=== PATIENT | male | born 1935 | race Caucasian/White ===

== ENCOUNTER 2021-10-18 08:13 | Emergency (ER) | payer MEDICARE, OTHER ==
[~2021-10-18] VITALS: Ht 182.9 cm; Wt 104.3 kg
== END 2021-10-18 09:52 ==
LOC: ER 08:18
DX: T83.021A Displacement of indwelling urethral catheter, initial encounter (principal); R31.9 Hematuria, unspecified; I11.0 Hypertensive heart disease with heart failure; I50.9 Heart failure, unspecified; J45.909 Unspecified asthma, uncomplicated; E03.9 Hypothyroidism, unspecified; F32.A Depression, unspecified; Y84.6 Urinary catheterization as the cause of abnormal reaction of the patient, or of later complication, without mention of misadventure at the time of the procedure; Z79.899 Other long term (current) drug therapy; Z85.51 Personal history of malignant neoplasm of bladder
CPT/HCPCS: 99283

== ENCOUNTER 2021-10-21 14:09 | Inpatient (IN) | payer MEDICARE, OTHER ==
[~2021-10-21] VITALS: Ht 182.9 cm; Wt 104.3 kg
[2021-10-21] MEDS ORDERED: SODIUM CHLORIDE 0.9% 1000ML 1,000 ML IV STA (15:08)
[2021-10-21 15:46] LABS: BASOPHILS # (AUTO) 0.1 (0.0-0.1); BASOPHILS % 0.8 % (0.0-1.0); EOSINOPHILS # (AUTO) 1.6 (0.0-0.4); EOSINOPHILS % 18.4 % (0.0-6.0); HEMATOCRIT 29.9 % (38.2-49.6); LYMPHOCYTES # (AUTO) 1.2 (1.0-3.2); LYMPHOCYTES % 14.2 % (18.0-39.1); MEAN CORPUSCULAR HEMOGLOBIN 27.1 pg (28-32); MEAN CORPUSCULAR HGB CONC 30.1 g/dL (31-35); MEAN CORPUSCULAR VOLUME 90.1 fL (81-99); MONOCYTES # (AUTO) 0.7 (0.2-0.8); NEUTROPHILS % 58.2 % (38.7-80.0); PLATELET COUNT 281 x10e3/uL (140-360); RED BLOOD COUNT 3.32 x10e6/uL (4.3-5.7); RED CELL DISTRIBUTION WIDTH 13.5 % (11.7-14.4)
[2021-10-21 15:56] LABS: CLARITY,URINE TURBID (CLEAR); COLOR,URINE BROWN (YELLOW); KETONES,URINE 1+ (NEGATIVE); LEUKOCYTE ESTERASE ,URINE LARGE (NEGATIVE); NITRITE,URINE NEGATIVE (NEGATIVE); PROTEIN,URINE DIPSTICK >=300 (NEGATIVE); URINE UROBILINOGEN 1 mg/dL (0.2 - 1)
[2021-10-21 15:58] LABS: INR 0.87; PROTHROMBIN TIME 12.7 seconds (11.9-14.5)
[2021-10-21 15:59] LABS: PARTIAL THROMBOPLASTIN TIME 28.9 seconds (23.8-35.5)
[2021-10-21 16:06] LABS: ALANINE AMINOTRANSFERASE 7 IU/L (0-55); ALBUMIN 3.1 g/dL (3.5-5.0); ALKALINE PHOSPHATASE 81 IU/L (40-150); ANION GAP 12.8 mmol/L (8-16); BLOOD UREA NITROGEN 26 mg/dL (7-26); BUN/CREATININE RATIO 18 (6-25); CALCIUM 8.7 mg/dL (8.4-10.2); CARBON DIOXIDE 27 mmol/L (22-29); CHLORIDE 107 mmol/L (98-107); CREATINE KINASE 84 IU/L (30-200); CREATININE, SERUM 1.41 mg/dL (0.72-1.25); GLUCOSE 112 mg/dL (74-118); MAGNESIUM 1.8 MG/DL (1.3-2.1); POTASSIUM 3.8 mmol/L (3.5-5.1); SODIUM 143 mmol/L (136-145)
[2021-10-21 16:08] LABS: BACTERIA,URINE MODERATE /HPF; RBC,URINE 21-50 /HPF (0-5); WBC,URINE (MAN) >50 /HPF (0-5)
[2021-10-21] MEDS ORDERED: SODIUM CHLORIDE 0.9% 500ML 500 ML ONE (16:22)
[2021-10-21] MEDS: MEROPENEM 1 GM in SODIUM CHLORIDE 0.9% 100 ML IV SCH (16:56)
[2021-10-21] MEDS ORDERED: ONDANSETRON HCL INJ 2MG/ML 2ML 2 MG/ML VIAL IV PRN (17:00)
[2021-10-21] MEDS ORDERED: SODIUM CHLORIDE 0.9% 1000ML 1,000 ML IV ONE ×2 (17:00→20:00)
[2021-10-21 20:30] VITALS: BP 169/74
[2021-10-21 20:47] LABS: CREATINE KINASE MB 1.7 ng/mL (0-5.0)
[2021-10-21 22:40] VITALS: BP 169/74
[2021-10-22] VITALS (7 sets, daily range): BP systolic 104–126; BP diastolic 57–112
[2021-10-22] MEDS ORDERED: ONDANSETRON HCL4 MG PO (00:47)
[2021-10-22] MEDS ORDERED: MONTELUKAST SOD10 MG PO (00:47)
[2021-10-22] MEDS ORDERED: LOPRESSOR25 MG PO (00:47)
[2021-10-22] MEDS ORDERED: LORATADINE10 MG PO (00:47)
[2021-10-22] MEDS ORDERED: ALBUTEROL1.25 MG/3 NEB (00:48)
[2021-10-22] MEDS ORDERED: LEVOTHYROXINE125 MCG PO (00:48)
[2021-10-22] MEDS ORDERED: ATORVASTATIN CA10 MG PO (00:48)
[2021-10-22] MEDS ORDERED: QUETIAPINE FUMA25 MG PO (00:48)
[2021-10-22] MEDS ORDERED: AMLODIPINE BESYL5 MG PO (00:48)
[2021-10-22] MEDS ORDERED: HYDROXYZINE HCL25 MG PO (00:48)
[2021-10-22] MEDS ORDERED: BREZTRI AEROS10.7 GM INH (00:48)
[2021-10-22] MEDS ORDERED: FUROSEMIDE20 MG PO (00:48)
[2021-10-22] MEDS ORDERED: ACIDOPHILUS1 EAC1 PO (00:48)
[2021-10-22] MEDS ORDERED: PEPCID20 MG PO (00:48)
[2021-10-22] MEDS ORDERED: VITAMIN D3125 MCG PO (00:48)
[2021-10-22] MEDS ORDERED: PAROXETINE HCL20 MG PO (00:48)
[2021-10-22] MEDS ORDERED: ACETAMINOPHEN325 M1 PO (00:48)
[2021-10-22] MEDS: MEROPENEM 1 GM in SODIUM CHLORIDE 0.9% 100 ML IV SCH ×2 (05:15→18:11)
[2021-10-22 05:41] LABS: BASOPHILS # (AUTO) 0.1 (0.0-0.1); BASOPHILS % 1.1 % (0.0-1.0); EOSINOPHILS # (AUTO) 1.5 (0.0-0.4); EOSINOPHILS % 20.6 % (0.0-6.0); HEMOGLOBIN 8.3 g/dL (14.0-18.0); LYMPHOCYTES # (AUTO) 1.3 (1.0-3.2); LYMPHOCYTES % 17.3 % (18.0-39.1); MEAN CORPUSCULAR HGB CONC 29.6 g/dL (31-35); MEAN CORPUSCULAR VOLUME 91.2 fL (81-99); MONOCYTES # (AUTO) 0.6 (0.2-0.8); MONOCYTES % 8.9 % (4.4-11.3); NEUTROPHILS # (AUTO) 3.7 (2.1-6.9); NEUTROPHILS % 51.7 % (38.7-80.0); PLATELET COUNT 252 x10e3/uL (140-360); RED BLOOD COUNT 3.07 x10e6/uL (4.3-5.7); RED CELL DISTRIBUTION WIDTH 13.5 % (11.7-14.4)
[2021-10-22 06:15] LABS: ALBUMIN 2.7 g/dL (3.5-5.0); ALBUMIN/GLOBULIN RATIO 0.9 (0.8-2.0); ANION GAP 12.1 mmol/L (8-16); CREATININE, SERUM 1.31 mg/dL (0.72-1.25); POTASSIUM 4.1 mmol/L (3.5-5.1)
[2021-10-22 06:36] LABS: CREATINE KINASE 64 IU/L (30-200)
[2021-10-22 07:29] LABS: EOSINOPHILS % (MANUAL) 16 % (0-7); LYMPHOCYTES % (MANUAL) 19 % (19-48); MONOCYTES % (MANUAL) 8 % (3.4-9.0); NEUTROPHILS % (MANUAL) 56 % (40-74)
[2021-10-22 07:30] LABS: PLATELET ESTIMATE ADEQUATE; PLATELET MORPHOLOGY COMMENT NORMAL
[2021-10-22 07:32] LABS: RBC MORPHOLOGY COMMENT ABNORMAL
[2021-10-22 07:33] LABS: ELLIPTOCYTE, RBC SLIGHT; HYPOCHROMASIA SLIGHT
[2021-10-22 07:34] LABS: POIKILOCYTOSIS SLIG
[2021-10-22 07:35] LABS: ROULEAU MODERATE
[2021-10-22] MEDS ORDERED: NON-FORMULARY MEDICATION (Albuterol Sulfate 1 INH) NEB PRN (10:45)
[2021-10-22] MEDS ORDERED: ALBUTEROL SULF 0.083% NEB SOLN 3 ML NEB NEB PRN (11:00)
[2021-10-22 13:03] LABS: CREATINE KINASE MB 1.6 ng/mL (0-5.0)
[2021-10-22] MEDS ORDERED: ALBUTEROL/IPRATROPIUM 3 ML NEB NEB ONE (17:50)
[2021-10-23] VITALS (8 sets, daily range): BP systolic 96–132; BP diastolic 54–88
[2021-10-23] MEDS: MEROPENEM 1 GM in SODIUM CHLORIDE 0.9% 100 ML IV SCH (04:19)
[2021-10-23] MEDS: LEVOTHYROXINE SODIUM 125 MCG TAB PO SCH (05:52)
[2021-10-23] MEDS: MONTELUKAST SODIUM 10 MG TAB PO SCH (09:07)
[2021-10-23] MEDS ORDERED: ONDANSETRON HCL 4 MG ORAL DISINTEGRATING TAB PO PRN (10:45)
[2021-10-23] MEDS: ALBUTEROL/IPRATROPIUM 3 ML NEB NEB PRN ×2 (13:40→19:45)
[2021-10-23] MEDS ORDERED: METHYLPREDNISOLONE SOD SUCC 40 MG/ML VIAL 1ML IV ONE (17:00)
[2021-10-23 17:10] LABS: BASOPHILS % 0.6 % (0.0-1.0); EOSINOPHILS # (AUTO) 1.3 (0.0-0.4); EOSINOPHILS % 18.5 % (0.0-6.0); LYMPHOCYTES # (AUTO) 1.4 (1.0-3.2); LYMPHOCYTES % 19.6 % (18.0-39.1); MEAN CORPUSCULAR HEMOGLOBIN 27.2 pg (28-32); MONOCYTES # (AUTO) 0.6 (0.2-0.8); MONOCYTES % 7.9 % (4.4-11.3); NEUTROPHILS # (AUTO) 3.8 (2.1-6.9); NEUTROPHILS % 53.1 % (38.7-80.0); PLATELET COUNT 252 x10e3/uL (140-360); RED BLOOD COUNT 3.31 x10e6/uL (4.3-5.7); RED CELL DISTRIBUTION WIDTH 13.4 % (11.7-14.4)
[2021-10-23 17:28] LABS: MEAN CORPUSCULAR VOLUME 87.6 fL (81-99)
[2021-10-24] VITALS (8 sets, daily range): BP systolic 132–155; BP diastolic 49–66
[2021-10-24] MEDS: LEVOTHYROXINE SODIUM 125 MCG TAB PO SCH (05:03)
[2021-10-24 06:41] LABS: BASOPHILS % 0.2 % (0.0-1.0); EOSINOPHILS % 0.2 % (0.0-6.0); HEMATOCRIT 27.8 % (38.2-49.6); HEMOGLOBIN 9.1 g/dL (14.0-18.0); LYMPHOCYTES # (AUTO) 0.8 (1.0-3.2); LYMPHOCYTES % 12.7 % (18.0-39.1); MEAN CORPUSCULAR HEMOGLOBIN 27.5 pg (28-32); MEAN CORPUSCULAR HGB CONC 32.7 g/dL (31-35); MONOCYTES # (AUTO) 0.4 (0.2-0.8); MONOCYTES % 5.8 % (4.4-11.3); NEUTROPHILS % 80.6 % (38.7-80.0); PLATELET COUNT 267 x10e3/uL (140-360); RED BLOOD COUNT 3.31 x10e6/uL (4.3-5.7); RED CELL DISTRIBUTION WIDTH 13.2 % (11.7-14.4)
[2021-10-24 07:09] LABS: ANION GAP 13.4 mmol/L (8-16); CALCIUM 8.5 mg/dL (8.4-10.2); CREATININE, SERUM 1.33 mg/dL (0.72-1.25); POTASSIUM 4.4 mmol/L (3.5-5.1)
[2021-10-24] MEDS: MONTELUKAST SODIUM 10 MG TAB PO SCH (07:40)
[2021-10-25] VITALS (8 sets, daily range): BP systolic 144–167; BP diastolic 62–76
[2021-10-25] MEDS: LEVOTHYROXINE SODIUM 125 MCG TAB PO SCH (05:20)
[2021-10-25 07:03] LABS: BASOPHILS # (AUTO) 0.1 (0.0-0.1); BASOPHILS % 0.9 % (0.0-1.0); EOSINOPHILS # (AUTO) 1.1 (0.0-0.4); EOSINOPHILS % 14.3 % (0.0-6.0); HEMATOCRIT 29.7 % (38.2-49.6); HEMOGLOBIN 9.5 g/dL (14.0-18.0); LYMPHOCYTES # (AUTO) 1.4 (1.0-3.2); LYMPHOCYTES % 18.9 % (18.0-39.1); MEAN CORPUSCULAR HEMOGLOBIN 27.6 pg (28-32); MEAN CORPUSCULAR VOLUME 86.3 fL (81-99); MONOCYTES # (AUTO) 0.7 (0.2-0.8); MONOCYTES % 9.6 % (4.4-11.3); NEUTROPHILS # (AUTO) 4.1 (2.1-6.9); NEUTROPHILS % 55.6 % (38.7-80.0); PLATELET COUNT 255 x10e3/uL (140-360); RED BLOOD COUNT 3.44 x10e6/uL (4.3-5.7); RED CELL DISTRIBUTION WIDTH 13.3 % (11.7-14.4)
[2021-10-25 08:43] LABS: ANION GAP 11.7 mmol/L (8-16); CALCIUM 8.3 mg/dL (8.4-10.2); CREATININE, SERUM 1.27 mg/dL (0.72-1.25); POTASSIUM 3.7 mmol/L (3.5-5.1)
[2021-10-25] MEDS ORDERED: AMLODIPINE BESYLATE 5 MG TAB PO SCH (09:00)
[2021-10-25] MEDS: MONTELUKAST SODIUM 10 MG TAB PO SCH (09:33)
[2021-10-25] MEDS: ALBUTEROL/IPRATROPIUM 3 ML NEB NEB PRN (16:35)
[2021-10-25] MEDS: ALBUTEROL/IPRATROPIUM 3 ML NEB NEB SCH (20:40)
[2021-10-25] MEDS ORDERED: SODIUM CHLORIDE 0.9% 250ML 250 ML ONE (20:43)
[2021-10-26] VITALS (7 sets, daily range): BP systolic 131–160; BP diastolic 58–82
[2021-10-26] MEDS: ALBUTEROL/IPRATROPIUM 3 ML NEB NEB SCH ×4 (02:05→19:00)
[2021-10-26] MEDS: LEVOTHYROXINE SODIUM 125 MCG TAB PO SCH (05:18)
[2021-10-26 06:16] LABS: BASOPHILS # (AUTO) 0.1 (0.0-0.1); BASOPHILS % 0.7 % (0.0-1.0); EOSINOPHILS # (AUTO) 1.1 (0.0-0.4); EOSINOPHILS % 12.6 % (0.0-6.0); HEMATOCRIT 28.3 % (38.2-49.6); HEMOGLOBIN 9.1 g/dL (14.0-18.0); LYMPHOCYTES # (AUTO) 1.2 (1.0-3.2); LYMPHOCYTES % 13.6 % (18.0-39.1); MEAN CORPUSCULAR HEMOGLOBIN 27.2 pg (28-32); MEAN CORPUSCULAR HGB CONC 32.2 g/dL (31-35); MEAN CORPUSCULAR VOLUME 84.7 fL (81-99); MONOCYTES # (AUTO) 0.9 (0.2-0.8); MONOCYTES % 9.7 % (4.4-11.3); NEUTROPHILS # (AUTO) 5.5 (2.1-6.9); NEUTROPHILS % 62.9 % (38.7-80.0); PLATELET COUNT 252 x10e3/uL (140-360); RED BLOOD COUNT 3.34 x10e6/uL (4.3-5.7); RED CELL DISTRIBUTION WIDTH 13.2 % (11.7-14.4)
[2021-10-26 06:37] LABS: ANION GAP 13.5 mmol/L (8-16); CALCIUM 7.9 mg/dL (8.4-10.2); CREATININE, SERUM 1.19 mg/dL (0.72-1.25); POTASSIUM 3.5 mmol/L (3.5-5.1)
[2021-10-26] MEDS: PAROXETINE HCL 20 MG TAB PO SCH (10:45)
[2021-10-26] MEDS: ATORVASTATIN 10 MG TAB PO SCH (10:45)
[2021-10-26] MEDS: METOPROLOL TARTRATE 25 MG TAB PO SCH ×2 (10:45→18:26)
[2021-10-26] MEDS: AMLODIPINE BESYLATE 5 MG TAB PO SCH (10:45)
[2021-10-26] MEDS: LORATADINE 10 MG TAB PO SCH (10:45)
[2021-10-26] MEDS: MONTELUKAST SODIUM 10 MG TAB PO SCH (10:46)
[2021-10-27] VITALS (7 sets, daily range): BP systolic 118–163; BP diastolic 53–75
[2021-10-27] MEDS: ALBUTEROL/IPRATROPIUM 3 ML NEB NEB SCH ×4 (00:35→19:52)
[2021-10-27] MEDS: LEVOTHYROXINE SODIUM 125 MCG TAB PO SCH (05:28)
[2021-10-27] MEDS: METOPROLOL TARTRATE 25 MG TAB PO SCH ×2 (09:21→17:00)
[2021-10-27] MEDS: AMLODIPINE BESYLATE 5 MG TAB PO SCH (09:21)
[2021-10-27] MEDS: ATORVASTATIN 10 MG TAB PO SCH (09:21)
[2021-10-27] MEDS: MONTELUKAST SODIUM 10 MG TAB PO SCH (09:22)
[2021-10-27] MEDS: PAROXETINE HCL 20 MG TAB PO SCH (09:22)
[2021-10-27] MEDS: LORATADINE 10 MG TAB PO SCH (09:22)
[2021-10-27] MEDS ORDERED: SODIUM CHLORIDE 0.9% 250ML 250 ML ONE ×2 (09:40→09:43)
[2021-10-28] VITALS (8 sets, daily range): BP systolic 130–144; BP diastolic 48–82
[2021-10-28] MEDS: ALBUTEROL/IPRATROPIUM 3 ML NEB NEB SCH ×4 (00:40→20:35)
[2021-10-28] MEDS: LEVOTHYROXINE SODIUM 125 MCG TAB PO SCH (05:20)
[2021-10-28 06:55] LABS: BASOPHILS # (AUTO) 0.1 (0.0-0.1); BASOPHILS % 0.8 % (0.0-1.0); EOSINOPHILS # (AUTO) 1.3 (0.0-0.4); EOSINOPHILS % 16.6 % (0.0-6.0); HEMATOCRIT 27.5 % (38.2-49.6); HEMOGLOBIN 8.8 g/dL (14.0-18.0); LYMPHOCYTES # (AUTO) 1.4 (1.0-3.2); LYMPHOCYTES % 18.3 % (18.0-39.1); MEAN CORPUSCULAR HEMOGLOBIN 27.2 pg (28-32); MEAN CORPUSCULAR VOLUME 85.1 fL (81-99); MONOCYTES # (AUTO) 0.6 (0.2-0.8); MONOCYTES % 7.7 % (4.4-11.3); NEUTROPHILS # (AUTO) 4.4 (2.1-6.9); NEUTROPHILS % 56.2 % (38.7-80.0); PLATELET COUNT 247 x10e3/uL (140-360); RED BLOOD COUNT 3.23 x10e6/uL (4.3-5.7); RED CELL DISTRIBUTION WIDTH 13.7 % (11.7-14.4)
[2021-10-28 07:20] LABS: ANION GAP 11.8 mmol/L (8-16); CALCIUM 8.4 mg/dL (8.4-10.2); CREATININE, SERUM 1.28 mg/dL (0.72-1.25); POTASSIUM 3.8 mmol/L (3.5-5.1)
[2021-10-28] MEDS: ATORVASTATIN 10 MG TAB PO SCH (08:48)
[2021-10-28] MEDS: LORATADINE 10 MG TAB PO SCH (08:49)
[2021-10-28] MEDS: PAROXETINE HCL 20 MG TAB PO SCH (08:49)
[2021-10-28] MEDS: METOPROLOL TARTRATE 25 MG TAB PO SCH ×2 (08:50→16:09)
[2021-10-28] MEDS: AMLODIPINE BESYLATE 5 MG TAB PO SCH (08:51)
[2021-10-28] MEDS: MONTELUKAST SODIUM 10 MG TAB PO SCH (08:52)
[2021-10-29] VITALS (8 sets, daily range): BP systolic 98–139; BP diastolic 50–83
[2021-10-29] MEDS: ALBUTEROL/IPRATROPIUM 3 ML NEB NEB SCH ×4 (02:30→20:10)
[2021-10-29] MEDS: LEVOTHYROXINE SODIUM 125 MCG TAB PO SCH (06:00)
[2021-10-29] MEDS: PAROXETINE HCL 20 MG TAB PO SCH (08:50)
[2021-10-29] MEDS: AMLODIPINE BESYLATE 5 MG TAB PO SCH (08:50)
[2021-10-29] MEDS: LORATADINE 10 MG TAB PO SCH (08:50)
[2021-10-29] MEDS: MONTELUKAST SODIUM 10 MG TAB PO SCH (08:50)
[2021-10-29] MEDS: ATORVASTATIN 10 MG TAB PO SCH (08:50)
[2021-10-29] MEDS: METOPROLOL TARTRATE 25 MG TAB PO SCH ×2 (08:51→16:20)
[2021-10-29] MEDS: TRIAMCINOLONE ACET 0.1% CREAM 15 GM TUBE TOP SCH (21:16)
[2021-10-30] VITALS (7 sets, daily range): BP systolic 123–139; BP diastolic 42–83
[2021-10-30] MEDS: ALBUTEROL/IPRATROPIUM 3 ML NEB NEB SCH ×4 (02:00→19:20)
[2021-10-30] MEDS: LEVOTHYROXINE SODIUM 125 MCG TAB PO SCH (06:00)
[2021-10-30] MEDS: LORATADINE 10 MG TAB PO SCH (09:37)
[2021-10-30] MEDS: ATORVASTATIN 10 MG TAB PO SCH (09:37)
[2021-10-30] MEDS: METOPROLOL TARTRATE 25 MG TAB PO SCH ×2 (09:38→17:10)
[2021-10-30] MEDS: TRIAMCINOLONE ACET 0.1% CREAM 15 GM TUBE TOP SCH ×2 (09:38→21:00)
[2021-10-30] MEDS: AMLODIPINE BESYLATE 5 MG TAB PO SCH (09:38)
[2021-10-30] MEDS: MONTELUKAST SODIUM 10 MG TAB PO SCH (09:38)
[2021-10-30] MEDS: PAROXETINE HCL 20 MG TAB PO SCH (09:38)
[2021-10-31] VITALS (10 sets, daily range): BP systolic 128–144; BP diastolic 47–79
[2021-10-31] MEDS: ALBUTEROL/IPRATROPIUM 3 ML NEB NEB SCH ×4 (00:15→19:40)
[2021-10-31] MEDS: LEVOTHYROXINE SODIUM 125 MCG TAB PO SCH (05:35)
[2021-10-31] MEDS: LORATADINE 10 MG TAB PO SCH (08:33)
[2021-10-31] MEDS: ATORVASTATIN 10 MG TAB PO SCH (08:33)
[2021-10-31] MEDS: PAROXETINE HCL 20 MG TAB PO SCH (08:34)
[2021-10-31] MEDS: TRIAMCINOLONE ACET 0.1% CREAM 15 GM TUBE TOP SCH ×2 (08:34→21:00)
[2021-10-31] MEDS: MONTELUKAST SODIUM 10 MG TAB PO SCH (08:34)
[2021-10-31] MEDS: AMLODIPINE BESYLATE 5 MG TAB PO SCH (08:34)
[2021-10-31] MEDS: METOPROLOL TARTRATE 25 MG TAB PO SCH ×2 (08:34→17:00)
[2021-10-31 10:25] LABS: BASOPHILS # (AUTO) 0.1 (0.0-0.1); BASOPHILS % 0.9 % (0.0-1.0); EOSINOPHILS # (AUTO) 1.1 (0.0-0.4); EOSINOPHILS % 13.5 % (0.0-6.0); HEMATOCRIT 28.7 % (38.2-49.6); HEMOGLOBIN 8.9 g/dL (14.0-18.0); LYMPHOCYTES # (AUTO) 1.2 (1.0-3.2); MEAN CORPUSCULAR HEMOGLOBIN 27.1 pg (28-32); MEAN CORPUSCULAR VOLUME 87.5 fL (81-99); MONOCYTES # (AUTO) 0.6 (0.2-0.8); MONOCYTES % 7.4 % (4.4-11.3); NEUTROPHILS # (AUTO) 5.3 (2.1-6.9); PLATELET COUNT 248 x10e3/uL (140-360); RED BLOOD COUNT 3.28 x10e6/uL (4.3-5.7); RED CELL DISTRIBUTION WIDTH 13.8 % (11.7-14.4)
[2021-11-01] MEDS: ALBUTEROL/IPRATROPIUM 3 ML NEB NEB SCH ×4 (00:05→19:18)
[2021-11-01 04:14] VITALS: BP 147/64
[2021-11-01] MEDS: LEVOTHYROXINE SODIUM 125 MCG TAB PO SCH (06:07)
[2021-11-01 07:56] VITALS: BP 113/62
[2021-11-01 08:17] VITALS: BP_SYST 113; BP_SYST 170; BP_DIAS 62; BP_DIAS 90
[2021-11-01] MEDS: MONTELUKAST SODIUM 10 MG TAB PO SCH (09:20)
[2021-11-01] MEDS: AMLODIPINE BESYLATE 5 MG TAB PO SCH (09:20)
[2021-11-01] MEDS: PAROXETINE HCL 20 MG TAB PO SCH (09:20)
[2021-11-01] MEDS: LORATADINE 10 MG TAB PO SCH (09:20)
[2021-11-01] MEDS: METOPROLOL TARTRATE 25 MG TAB PO SCH ×2 (09:22→17:03)
[2021-11-01] MEDS: ATORVASTATIN 10 MG TAB PO SCH (09:22)
[2021-11-01] MEDS: TRIAMCINOLONE ACET 0.1% CREAM 15 GM TUBE TOP SCH ×2 (09:23→23:09)
[2021-11-01 11:36] VITALS: BP 113/60
[2021-11-01 15:50] VITALS: BP 118/51
[2021-11-01 20:00] VITALS: BP 95/70
[2021-11-02] VITALS: BP 130/57
[2021-11-02] MEDS: ALBUTEROL/IPRATROPIUM 3 ML NEB NEB SCH ×2 (00:15→07:01)
[2021-11-02 04:00] VITALS: BP 97/72
[2021-11-02] MEDS: LEVOTHYROXINE SODIUM 125 MCG TAB PO SCH (05:24)
[2021-11-02 06:34] LABS: BASOPHILS # (AUTO) 0.1 (0.0-0.1); EOSINOPHILS # (AUTO) 1.1 (0.0-0.4); EOSINOPHILS % 14.6 % (0.0-6.0); HEMATOCRIT 28.8 % (38.2-49.6); HEMOGLOBIN 9.3 g/dL (14.0-18.0); LYMPHOCYTES # (AUTO) 1.3 (1.0-3.2); MEAN CORPUSCULAR HEMOGLOBIN 27.4 pg (28-32); MEAN CORPUSCULAR HGB CONC 32.3 g/dL (31-35); MONOCYTES # (AUTO) 0.7 (0.2-0.8); MONOCYTES % 9.3 % (4.4-11.3); NEUTROPHILS # (AUTO) 4.1 (2.1-6.9); NEUTROPHILS % 56.7 % (38.7-80.0); PLATELET COUNT 258 x10e3/uL (140-360); RED BLOOD COUNT 3.39 x10e6/uL (4.3-5.7); RED CELL DISTRIBUTION WIDTH 13.7 % (11.7-14.4)
[2021-11-02 07:06] LABS: CALCIUM 8.2 mg/dL (8.4-10.2); CREATININE, SERUM 1.44 mg/dL (0.72-1.25)
[2021-11-02 07:52] VITALS: BP 134/61
[2021-11-02 08:04] VITALS: BP 134/61
[2021-11-02] MEDS: ATORVASTATIN 10 MG TAB PO SCH (08:26)
[2021-11-02] MEDS: METOPROLOL TARTRATE 25 MG TAB PO SCH (08:27)
[2021-11-02] MEDS: LORATADINE 10 MG TAB PO SCH (08:27)
[2021-11-02] MEDS: TRIAMCINOLONE ACET 0.1% CREAM 15 GM TUBE TOP SCH (08:27)
[2021-11-02] MEDS: MONTELUKAST SODIUM 10 MG TAB PO SCH (08:27)
[2021-11-02] MEDS: AMLODIPINE BESYLATE 5 MG TAB PO SCH (08:27)
[2021-11-02] MEDS: PAROXETINE HCL 20 MG TAB PO SCH (08:27)
== END 2021-11-02 09:55 | disposition critical access hospital, planned readmission (94) | DRG 698 ==
LOC: ER 14:56 → ERHOLD 16:51 → MED/SURG2 19:47 → MED/SURG3 10-24 05:10
PROVIDERS: ADMIT Internal Medicine; ATTEND Internal Medicine
DX: T83.091A Other mechanical complication of indwelling urethral catheter, initial encounter (principal); G93.41 Metabolic encephalopathy; N17.9 Acute kidney failure, unspecified; N39.0 Urinary tract infection, site not specified; N13.8 Other obstructive and reflux uropathy; I13.0 Hypertensive heart and chronic kidney disease with heart failure and stage 1 through stage 4 chronic kidney disease, or unspecified chronic kidney disease; I50.32 Chronic diastolic (congestive) heart failure; F03.90 Unspecified dementia, unspecified severity, without behavioral disturbance, psychotic disturbance, mood disturbance, and anxiety; J45.909 Unspecified asthma, uncomplicated; E03.9 Hypothyroidism, unspecified; F32.A Depression, unspecified; Z88.1 Allergy status to other antibiotic agents; Z91.040 Latex allergy status; N40.1 Benign prostatic hyperplasia with lower urinary tract symptoms; J44.9 Chronic obstructive pulmonary disease, unspecified; E66.9 Obesity, unspecified; Z68.31 Body mass index [BMI] 31.0-31.9, adult; C67.9 Malignant neoplasm of bladder, unspecified; I35.0 Nonrheumatic aortic (valve) stenosis; E78.5 Hyperlipidemia, unspecified; N18.30 Chronic kidney disease, stage 3 unspecified; D63.8 Anemia in other chronic diseases classified elsewhere; D50.0 Iron deficiency anemia secondary to blood loss (chronic); Z20.822 Contact with and (suspected) exposure to COVID-19
CPT/HCPCS: 36415; 71045; 72194; 80048; 80053; 81001; 82550; 82553; 83605; 83735; 83880; 84484; 85025; 85610; 85730; 86850; 86900; 87040; 87086; 93005; 93306; 94640; 94664; 94799; 96361; 99251; 99284; J0696; J2185; J2920; J7030; J7040; J7050

== ENCOUNTER 2021-11-21 13:31 | Inpatient (IN) | payer MEDICARE, OTHER ==
[~2021-11-21] VITALS: Ht 182.9 cm; Wt 104.3 kg
[~2021-11-21 13:31] MED LIST: ACETAMINOPHEN325 M1 PO; ACIDOPHILUS1 EAC1 PO; ALBUTEROL1.25 MG/3 NEB; AMLODIPINE BESYL5 MG PO; ATORVASTATIN CA10 MG PO; BREZTRI AEROS10.7 GM INH; FUROSEMIDE20 MG PO; HYDROXYZINE HCL25 MG PO; LEVOTHYROXINE125 MCG PO; LOPRESSOR25 MG PO; LORATADINE10 MG PO; MONTELUKAST SOD10 MG PO; ONDANSETRON HCL4 MG PO; PAROXETINE HCL20 MG PO; PEPCID20 MG PO; QUETIAPINE FUMA25 MG PO; VITAMIN D3125 MCG PO
[2021-11-21 17:31] VITALS: BP 110/64
[2021-11-21 18:00] VITALS: BP 110/64
[2021-11-21] MEDS ORDERED: IPRATROPIU0.2 MG/1 M NEB (18:26)
[2021-11-21] MEDS ORDERED: SEROQUEL25 MG PO (18:26)
[2021-11-21] MEDS ORDERED: SYNTHROID125 MCG PO (18:26)
[2021-11-21] MEDS ORDERED: CLOTRIMAZOLE-BE15 GM TOP (18:26)
[2021-11-21] MEDS ORDERED: BISACODYL5 MG PO (18:26)
[2021-11-21] MEDS ORDERED: MONTELUKAST SOD10 MG PO (18:26)
[2021-11-21] MEDS ORDERED: IPRATROPIU0.2 MG/1 M INH (18:26)
[2021-11-21] MEDS ORDERED: DOCUSATE SODIU100 MG PO (18:26)
[2021-11-21] MEDS ORDERED: DULCOLAX10 MG PR (18:26)
[2021-11-21] MEDS ORDERED: HEPARIN 5,5000 UNIT1 SQ (18:26)
[2021-11-21] MEDS ORDERED: COMPAZINE25 MG IVP (18:26)
[2021-11-21] MEDS ORDERED: HYDRALAZIN20 MG/1 ML INJ (18:26)
[2021-11-21] MEDS ORDERED: SENOKOT-S TABL1 EACH PO (18:26)
[2021-11-21 18:30] VITALS: BP 110/64
[2021-11-21] MEDS ORDERED: HYDRALAZINE HCL 20 MG/ML VIAL INJ PRN (18:30)
[2021-11-21] MEDS ORDERED: BISACODYL 5 MG TAB EC PO PRN (18:30)
[2021-11-21] MEDS ORDERED: IPRATROPIUM BROMIDE 0.02% 2.5 ML NEB INH PRN (18:30)
[2021-11-21] MEDS ORDERED: PROCHLORPERAZINE 10 MG IVP PRN (18:30)
[2021-11-21] MEDS ORDERED: BISACODYL 10 MG SUPP PR PRN (18:30)
[2021-11-21] MEDS: IPRATROPIUM BROMIDE 0.02% 2.5 ML NEB NEB SCH ×2 (19:15→23:00)
[2021-11-21 20:00] VITALS: BP 144/78
[2021-11-21] MEDS: QUETIAPINE FUMARATE 25 MG TAB PO SCH (20:30)
[2021-11-21] MEDS: MONTELUKAST SODIUM 10 MG TAB PO SCH (20:30)
[2021-11-21] MEDS: ATORVASTATIN 10 MG TAB PO SCH (20:30)
[2021-11-21] MEDS ORDERED: ACETAMINOPHEN 325 MG TAB PO PRN (21:00)
[2021-11-21 21:30] VITALS: BP 144/78
[2021-11-21 22:00] VITALS: BP 144/78
[2021-11-22] VITALS (17 sets, daily range): BP systolic 112–165; BP diastolic 71–99
[2021-11-22] MEDS: IPRATROPIUM BROMIDE 0.02% 2.5 ML NEB NEB SCH ×6 (03:00→23:25)
[2021-11-22 05:30] LABS: BASOPHILS % 0.4 % (0.0-1.0); EOSINOPHILS # (AUTO) 1.3 (0.0-0.4); EOSINOPHILS % 16.8 % (0.0-6.0); HEMATOCRIT 23.9 % (38.2-49.6); HEMOGLOBIN 7.8 g/dL (14.0-18.0); LYMPHOCYTES % 12.8 % (18.0-39.1); MEAN CORPUSCULAR HEMOGLOBIN 27.6 pg (28-32); MEAN CORPUSCULAR HGB CONC 32.6 g/dL (31-35); MEAN CORPUSCULAR VOLUME 84.5 fL (81-99); MONOCYTES # (AUTO) 0.7 (0.2-0.8); MONOCYTES % 8.9 % (4.4-11.3); NEUTROPHILS # (AUTO) 4.8 (2.1-6.9); NEUTROPHILS % 60.6 % (38.7-80.0); PLATELET COUNT 153 x10e3/uL (140-360); RED BLOOD COUNT 2.83 x10e6/uL (4.3-5.7); RED CELL DISTRIBUTION WIDTH 13.6 % (11.7-14.4)
[2021-11-22] MEDS: LEVOTHYROXINE SODIUM 125 MCG TAB PO SCH (05:49)
[2021-11-22 05:52] LABS: ANION GAP 11.6 mmol/L (8-16); CALCIUM 8.4 mg/dL (8.4-10.2); CREATININE, SERUM 1.19 mg/dL (0.72-1.25); POTASSIUM 3.6 mmol/L (3.5-5.1)
[2021-11-22] MEDS: NON-FORMULARY MEDICATION (Budesonide/Glycopyr/Formoterol (Breztri Aerosphere Inhaler) 2 IN INH SCH ×2 (09:00→19:00)
[2021-11-22] MEDS ORDERED: ACETAMINOPHEN 325 MG TAB PO SCH (09:00)
[2021-11-22] MEDS: BETAMETHASONE/CLOTRIMAZOLE CR 15 GM TUBE TOP SCH ×2 (10:39→17:26)
[2021-11-22] MEDS: DOCUSATE SODIUM 100 MG CAP PO SCH ×2 (10:39→17:26)
[2021-11-22] MEDS: SENNA-S TABLET PO SCH ×2 (10:39→17:26)
[2021-11-22] MEDS: FUROSEMIDE INJ 10 MG/ML 4 ML VIAL IV SCH ×2 (10:41→22:22)
[2021-11-22] MEDS: QUETIAPINE FUMARATE 25 MG TAB PO SCH (22:22)
[2021-11-22] MEDS: ATORVASTATIN 10 MG TAB PO SCH (22:22)
[2021-11-22] MEDS: MONTELUKAST SODIUM 10 MG TAB PO SCH (22:22)
[2021-11-23] VITALS (11 sets, daily range): BP systolic 123–171; BP diastolic 54–99
[2021-11-23] MEDS: IPRATROPIUM BROMIDE 0.02% 2.5 ML NEB NEB SCH ×6 (02:50→22:50)
[2021-11-23 05:39] LABS: BASOPHILS % 0.3 % (0.0-1.0); EOSINOPHILS # (AUTO) 1.2 (0.0-0.4); EOSINOPHILS % 16.3 % (0.0-6.0); HEMATOCRIT 24.4 % (38.2-49.6); HEMOGLOBIN 7.7 g/dL (14.0-18.0); LYMPHOCYTES # (AUTO) 1.1 (1.0-3.2); LYMPHOCYTES % 14.6 % (18.0-39.1); MEAN CORPUSCULAR HEMOGLOBIN 27.7 pg (28-32); MEAN CORPUSCULAR HGB CONC 31.6 g/dL (31-35); MEAN CORPUSCULAR VOLUME 87.8 fL (81-99); MONOCYTES # (AUTO) 0.7 (0.2-0.8); MONOCYTES % 9.8 % (4.4-11.3); NEUTROPHILS # (AUTO) 4.3 (2.1-6.9); NEUTROPHILS % 58.6 % (38.7-80.0); PLATELET COUNT 203 x10e3/uL (140-360); RED BLOOD COUNT 2.78 x10e6/uL (4.3-5.7); RED CELL DISTRIBUTION WIDTH 13.6 % (11.7-14.4)
[2021-11-23 06:00] LABS: ALBUMIN 2.5 g/dL (3.5-5.0); ALBUMIN/GLOBULIN RATIO 0.9 (0.8-2.0); ANION GAP 13.4 mmol/L (8-16); CALCIUM 8.5 mg/dL (8.4-10.2); CREATININE, SERUM 1.32 mg/dL (0.72-1.25); POTASSIUM 3.4 mmol/L (3.5-5.1)
[2021-11-23] MEDS: LEVOTHYROXINE SODIUM 125 MCG TAB PO SCH (06:41)
[2021-11-23] MEDS: NON-FORMULARY MEDICATION (Budesonide/Glycopyr/Formoterol (Breztri Aerosphere Inhaler) 2 IN INH SCH ×2 (07:00→19:00)
[2021-11-23] MEDS: FUROSEMIDE INJ 10 MG/ML 4 ML VIAL IV SCH (08:33)
[2021-11-23] MEDS: SENNA-S TABLET PO SCH ×2 (08:33→17:01)
[2021-11-23] MEDS: DOCUSATE SODIUM 100 MG CAP PO SCH ×2 (08:34→17:01)
[2021-11-23] MEDS: BETAMETHASONE/CLOTRIMAZOLE CR 15 GM TUBE TOP SCH ×2 (08:34→17:01)
[2021-11-23] MEDS ORDERED: METHYLPREDNISOLONE SOD SUCC 40 MG/ML VIAL 1ML IV ONE (12:00)
[2021-11-23] MEDS: FUROSEMIDE 20 MG TAB PO SCH (13:34)
[2021-11-23] MEDS: HYDROCORTISONE 1% CREAM 30 GM TUBE TOP SCH (17:01)
[2021-11-23] MEDS: QUETIAPINE FUMARATE 25 MG TAB PO SCH (21:00)
[2021-11-23] MEDS: ATORVASTATIN 10 MG TAB PO SCH (21:00)
[2021-11-23] MEDS: MONTELUKAST SODIUM 10 MG TAB PO SCH (21:00)
[2021-11-24] VITALS (7 sets, daily range): BP systolic 141–159; BP diastolic 48–84
[2021-11-24] MEDS: IPRATROPIUM BROMIDE 0.02% 2.5 ML NEB NEB SCH ×6 (03:00→23:00)
[2021-11-24] MEDS: LEVOTHYROXINE SODIUM 125 MCG TAB PO SCH (05:51)
[2021-11-24] MEDS: NON-FORMULARY MEDICATION (Budesonide/Glycopyr/Formoterol (Breztri Aerosphere Inhaler) 2 IN INH SCH ×2 (07:00→19:00)
[2021-11-24] MEDS ORDERED: COREG6.25 MG PO (09:10)
[2021-11-24] MEDS ORDERED: LASIX40 MG PO (09:10)
[2021-11-24] MEDS: FUROSEMIDE 20 MG TAB PO SCH (09:24)
[2021-11-24] MEDS: DOCUSATE SODIUM 100 MG CAP PO SCH ×2 (09:24→17:40)
[2021-11-24] MEDS: SENNA-S TABLET PO SCH ×2 (09:24→17:40)
[2021-11-24] MEDS: BETAMETHASONE/CLOTRIMAZOLE CR 15 GM TUBE TOP SCH ×2 (09:24→17:40)
[2021-11-24] MEDS: HYDROCORTISONE 1% CREAM 30 GM TUBE TOP SCH ×2 (09:24→17:40)
[2021-11-24] MEDS: LORATADINE 10 MG TAB PO SCH (09:24)
[2021-11-24] MEDS: ATORVASTATIN 10 MG TAB PO SCH (21:00)
[2021-11-24] MEDS: QUETIAPINE FUMARATE 25 MG TAB PO SCH (21:00)
[2021-11-24] MEDS: MONTELUKAST SODIUM 10 MG TAB PO SCH (21:00)
[2021-11-25] VITALS (8 sets, daily range): BP systolic 104–168; BP diastolic 21–93
[2021-11-25] MEDS: IPRATROPIUM BROMIDE 0.02% 2.5 ML NEB NEB SCH ×6 (00:20→20:10)
[2021-11-25 05:56] LABS: BASOPHILS # (AUTO) 0.1 (0.0-0.1); BASOPHILS % 0.8 % (0.0-1.0); EOSINOPHILS # (AUTO) 1.2 (0.0-0.4); EOSINOPHILS % 18.7 % (0.0-6.0); HEMATOCRIT 24.3 % (38.2-49.6); LYMPHOCYTES # (AUTO) 1.3 (1.0-3.2); LYMPHOCYTES % 18.8 % (18.0-39.1); MEAN CORPUSCULAR HEMOGLOBIN 27.9 pg (28-32); MEAN CORPUSCULAR HGB CONC 32.9 g/dL (31-35); MEAN CORPUSCULAR VOLUME 84.7 fL (81-99); MONOCYTES # (AUTO) 0.6 (0.2-0.8); MONOCYTES % 8.4 % (4.4-11.3); NEUTROPHILS # (AUTO) 3.5 (2.1-6.9); NEUTROPHILS % 52.7 % (38.7-80.0); PLATELET COUNT 332 x10e3/uL (140-360); RED BLOOD COUNT 2.87 x10e6/uL (4.3-5.7); RED CELL DISTRIBUTION WIDTH 13.7 % (11.7-14.4)
[2021-11-25] MEDS: LEVOTHYROXINE SODIUM 125 MCG TAB PO SCH (06:09)
[2021-11-25 08:02] LABS: ANION GAP 16.5 mmol/L (8-16); CALCIUM 8.4 mg/dL (8.4-10.2); CREATININE, SERUM 1.4 mg/dL (0.72-1.25); POTASSIUM 3.5 mmol/L (3.5-5.1)
[2021-11-25] MEDS: LORATADINE 10 MG TAB PO SCH (09:25)
[2021-11-25] MEDS: SENNA-S TABLET PO SCH ×2 (09:25→17:57)
[2021-11-25] MEDS: DOCUSATE SODIUM 100 MG CAP PO SCH ×2 (09:25→17:57)
[2021-11-25] MEDS: FUROSEMIDE 20 MG TAB PO SCH (09:25)
[2021-11-25] MEDS: BETAMETHASONE/CLOTRIMAZOLE CR 15 GM TUBE TOP SCH ×2 (09:27→18:04)
[2021-11-25] MEDS: HYDROCORTISONE 1% CREAM 30 GM TUBE TOP SCH ×2 (09:30→18:04)
[2021-11-25] MEDS: METOPROLOL TARTRATE 25 MG TAB PO SCH (21:59)
[2021-11-25] MEDS: ATORVASTATIN 10 MG TAB PO SCH (21:59)
[2021-11-25] MEDS: QUETIAPINE FUMARATE 25 MG TAB PO SCH (22:00)
[2021-11-25] MEDS: MONTELUKAST SODIUM 10 MG TAB PO SCH (22:00)
[2021-11-26] VITALS: BP 168/72
[2021-11-26 04:00] VITALS: BP 150/67
[2021-11-26] MEDS: IPRATROPIUM BROMIDE 0.02% 2.5 ML NEB NEB SCH ×5 (04:00→19:10)
[2021-11-26] MEDS: LEVOTHYROXINE SODIUM 125 MCG TAB PO SCH (06:33)
[2021-11-26] MEDS: NON-FORMULARY MEDICATION (Budesonide/Glycopyr/Formoterol (Breztri Aerosphere Inhaler) 2 IN INH SCH (07:00)
[2021-11-26 09:04] VITALS: BP 145/61
[2021-11-26] MEDS: DOCUSATE SODIUM 100 MG CAP PO SCH ×2 (09:06→17:05)
[2021-11-26] MEDS: SENNA-S TABLET PO SCH ×2 (09:06→17:05)
[2021-11-26] MEDS: FUROSEMIDE 20 MG TAB PO SCH (09:07)
[2021-11-26] MEDS: BETAMETHASONE/CLOTRIMAZOLE CR 15 GM TUBE TOP SCH ×2 (09:07→17:05)
[2021-11-26] MEDS: METOPROLOL TARTRATE 25 MG TAB PO SCH (09:07)
[2021-11-26] MEDS: HYDROCORTISONE 1% CREAM 30 GM TUBE TOP SCH ×2 (09:07→17:05)
[2021-11-26] MEDS: LORATADINE 10 MG TAB PO SCH (09:07)
[2021-11-26 09:56] VITALS: BP 141/65
[2021-11-26 12:47] VITALS: BP 123/67
[2021-11-26] MEDS ORDERED: LOPRESSOR25 MG PO (15:52)
[2021-11-26] MEDS ORDERED: FUROSEMIDE20 MG PO (15:52)
[2021-11-26 16:56] VITALS: BP 149/68
== END 2021-11-26 19:46 | DRG 291 ==
LOC: UNDOADMIN 13:42 → MED/SURG3 13:42
PROVIDERS: ADMIT Internal Medicine; ATTEND Internal Medicine
DX: I13.0 Hypertensive heart and chronic kidney disease with heart failure and stage 1 through stage 4 chronic kidney disease, or unspecified chronic kidney disease (principal); I50.33 Acute on chronic diastolic (congestive) heart failure; N17.9 Acute kidney failure, unspecified; N39.0 Urinary tract infection, site not specified; N20.1 Calculus of ureter; C67.9 Malignant neoplasm of bladder, unspecified; I35.0 Nonrheumatic aortic (valve) stenosis; J44.9 Chronic obstructive pulmonary disease, unspecified; E03.9 Hypothyroidism, unspecified; N18.30 Chronic kidney disease, stage 3 unspecified; F03.90 Unspecified dementia, unspecified severity, without behavioral disturbance, psychotic disturbance, mood disturbance, and anxiety; E78.5 Hyperlipidemia, unspecified; I73.9 Peripheral vascular disease, unspecified; Z88.8 Allergy status to other drugs, medicaments and biological substances; Z88.1 Allergy status to other antibiotic agents; Z91.040 Latex allergy status; Z87.891 Personal history of nicotine dependence; N99.81 Other intraoperative complications of genitourinary system; Z87.442 Personal history of urinary calculi; Z93.6 Other artificial openings of urinary tract status; E66.9 Obesity, unspecified; Z68.31 Body mass index [BMI] 31.0-31.9, adult
CPT/HCPCS: 36415; 76857; 80048; 80053; 85025; 94640; 94799; J1940; J2920

== ENCOUNTER 2022-02-03 17:42 | Inpatient (IN) | payer MEDICARE, OTHER ==
[~2022-02-03] VITALS: Ht 182.9 cm; Wt 104.3 kg
[~2022-02-03 17:42] MED LIST changes: +BISACODYL5 MG PO; +CLOTRIMAZOLE-BE15 GM TOP; +COMPAZINE25 MG IVP; +COREG6.25 MG PO; +DOCUSATE SODIU100 MG PO; +DULCOLAX10 MG PR; +HEPARIN 5,5000 UNIT1 SQ; +HYDRALAZIN20 MG/1 ML INJ; +IPRATROPIU0.2 MG/1 M INH; +IPRATROPIU0.2 MG/1 M NEB; +LASIX40 MG PO; +SENOKOT-S TABL1 EACH PO; +SEROQUEL25 MG PO; +SYNTHROID125 MCG PO
[2022-02-03 18:20] LABS: BASOPHILS # (AUTO) 0.1 (0.0-0.1); BASOPHILS % 0.8 % (0.0-1.0); EOSINOPHILS # (AUTO) 0.8 (0.0-0.4); EOSINOPHILS % 7.6 % (0.0-6.0); HEMATOCRIT 32.5 % (38.2-49.6); HEMOGLOBIN 9.6 g/dL (14.0-18.0); LYMPHOCYTES # (AUTO) 1.2 (1.0-3.2); MEAN CORPUSCULAR HEMOGLOBIN 26.4 pg (28-32); MEAN CORPUSCULAR HGB CONC 29.5 g/dL (31-35); MEAN CORPUSCULAR VOLUME 89.5 fL (81-99); MONOCYTES # (AUTO) 0.7 (0.2-0.8); MONOCYTES % 6.1 % (4.4-11.3); NEUTROPHILS # (AUTO) 7.9 (2.1-6.9); NEUTROPHILS % 74.2 % (38.7-80.0); PLATELET COUNT 398 x10e3/uL (140-360); RED BLOOD COUNT 3.63 x10e6/uL (4.3-5.7); RED CELL DISTRIBUTION WIDTH 14.3 % (11.7-14.4)
[2022-02-03 18:23] LABS: CLARITY,URINE CLOUDY (CLEAR); COLOR,URINE AMBER (YELLOW); KETONES,URINE TRACE (NEGATIVE); LEUKOCYTE ESTERASE ,URINE LARGE (NEGATIVE); NITRITE,URINE NEGATIVE (NEGATIVE); PROTEIN,URINE DIPSTICK >=300 (NEGATIVE); URINE UROBILINOGEN 0.2 mg/dL (0.2 - 1)
[2022-02-03 18:34] LABS: BACTERIA,URINE MANY /HPF; WBC,URINE (MAN) >50 /HPF (0-5)
[2022-02-03 18:39] LABS: ALBUMIN 3.2 g/dL (3.5-5.0); ALBUMIN/GLOBULIN RATIO 0.8 (0.8-2.0); ALKALINE PHOSPHATASE 66 IU/L (40-150); ANION GAP 19.7 mmol/L (8-16); BLOOD UREA NITROGEN 26 mg/dL (7-26); BUN/CREATININE RATIO 12 (6-25); CALCIUM 9.4 mg/dL (8.4-10.2); CARBON DIOXIDE 24 mmol/L (22-29); CHLORIDE 104 mmol/L (98-107); CREATININE, SERUM 2.13 mg/dL (0.72-1.25); GLUCOSE 107 mg/dL (74-118); POTASSIUM 4.7 mmol/L (3.5-5.1); SODIUM 143 mmol/L (136-145)
[2022-02-03 18:40] LABS: ALANINE AMINOTRANSFERASE < 6 IU/L (0-55)
[2022-02-03 19:23] LABS: CREATINE KINASE MB 2.2 ng/mL (0-5.0)
[2022-02-03] MEDS ORDERED: ONDANSETRON HCL INJ 2MG/ML 2ML 2 MG/ML VIAL IV PRN (19:45)
[2022-02-03] MEDS ORDERED: Morphine 4mg INJECTION 4 MG/ML INJ IV PRN (19:45)
[2022-02-03] MEDS ORDERED: AMOXICILLIN/CLAVULANATE K 500 MG TAB PO SCH (20:00)
[2022-02-03] MEDS: SODIUM CHLORIDE 0.9% 1000ML 1,000 ML IV SCH (20:16)
[2022-02-03 21:51] VITALS: BP 140/73
[2022-02-03] MEDS ORDERED: ALBUTEROL1.25 MG/3 NEB (22:52)
[2022-02-03] MEDS ORDERED: METOPROLOL TART25 MG PO (23:02)
[2022-02-03] MEDS ORDERED: BISACODYL 10 MG SUPP PR PRN (23:15)
[2022-02-03] MEDS ORDERED: ALBUTEROL SULF 0.083% NEB SOLN 3 ML NEB NEB PRN (23:15)
[2022-02-03] MEDS ORDERED: BISACODYL 5 MG TAB EC PO PRN (23:15)
[2022-02-03 23:23] VITALS: BP 125/86
[2022-02-04] VITALS (10 sets, daily range): BP systolic 125–165; BP diastolic 55–86
[2022-02-04] MEDS ORDERED: QUETIAPINE FUMARATE 25 MG TAB PO ONE (00:30)
[2022-02-04] MEDS ORDERED: ACIDOPHILUS1 EAC1 PO (02:42)
[2022-02-04] MEDS ORDERED: VITAMIND3 (02:42)
[2022-02-04] MEDS ORDERED: OYSTER SHELL 51 EACH PO (02:42)
[2022-02-04] MEDS ORDERED: VENLAFAXINE HCL75 MG PO (02:42)
[2022-02-04] MEDS ORDERED: LOSARTAN POTASS25 MG PO (02:42)
[2022-02-04] MEDS ORDERED: HYDROXYZIN10 MG/5 ML PO (02:42)
[2022-02-04] MEDS ORDERED: BREZTRI AEROS10.7 GM (02:42)
[2022-02-04] MEDS ORDERED: NORVASC5 MG PO (02:42)
[2022-02-04] MEDS ORDERED: GYNE-LOTRIMIN45 GM TOP (02:42)
[2022-02-04] MEDS ORDERED: ZINC50 M2 (02:42)
[2022-02-04] MEDS ORDERED: LORATADINE10 MG PO (02:42)
[2022-02-04] MEDS ORDERED: PAROXETINE HCL20 MG PO (02:42)
[2022-02-04] MEDS ORDERED: ONDANSETRON ODT8 MG PO (02:42)
[2022-02-04] MEDS ORDERED: PAXIL20 MG PO (02:42)
[2022-02-04 05:40] LABS: BASOPHILS # (AUTO) 0.1 (0.0-0.1); BASOPHILS % 0.8 % (0.0-1.0); EOSINOPHILS # (AUTO) 0.8 (0.0-0.4); EOSINOPHILS % 9.7 % (0.0-6.0); HEMOGLOBIN 8.2 g/dL (14.0-18.0); LYMPHOCYTES % 11.9 % (18.0-39.1); MEAN CORPUSCULAR HEMOGLOBIN 26.1 pg (28-32); MEAN CORPUSCULAR HGB CONC 29.3 g/dL (31-35); MEAN CORPUSCULAR VOLUME 89.2 fL (81-99); MONOCYTES # (AUTO) 0.6 (0.2-0.8); MONOCYTES % 6.8 % (4.4-11.3); NEUTROPHILS % 70.4 % (38.7-80.0); PLATELET COUNT 320 x10e3/uL (140-360); RED BLOOD COUNT 3.14 x10e6/uL (4.3-5.7); RED CELL DISTRIBUTION WIDTH 14.1 % (11.7-14.4)
[2022-02-04] MEDS: SODIUM CHLORIDE 0.9% 1000ML 1,000 ML IV SCH ×3 (05:49→19:45)
[2022-02-04 06:18] LABS: ALBUMIN 2.5 g/dL (3.5-5.0); ALBUMIN/GLOBULIN RATIO 0.8 (0.8-2.0); ALKALINE PHOSPHATASE 58 IU/L (40-150); BLOOD UREA NITROGEN 24 mg/dL (7-26); BUN/CREATININE RATIO 13 (6-25); CALCIUM 8.4 mg/dL (8.4-10.2); CARBON DIOXIDE 23 mmol/L (22-29); CHLORIDE 107 mmol/L (98-107); CREATININE, SERUM 1.79 mg/dL (0.72-1.25); GLUCOSE 95 mg/dL (74-118); SODIUM 141 mmol/L (136-145)
[2022-02-04 06:20] LABS: ALANINE AMINOTRANSFERASE < 6 IU/L (0-55)
[2022-02-04] MEDS: LEVOTHYROXINE SODIUM 125 MCG TAB PO SCH (06:46)
[2022-02-04] MEDS ORDERED: POLYETHYLENE GLYCOL 3350 17 GM PACK PO PRN (07:15)
[2022-02-04] MEDS: LACTOBACILLUS ACIDOPHILUS CAPSULE PO SCH (09:00)
[2022-02-04] MEDS: SENNA-S TABLET PO SCH ×2 (09:00→17:52)
[2022-02-04] MEDS: AMLODIPINE BESYLATE 5 MG TAB PO SCH (09:00)
[2022-02-04] MEDS ORDERED: FUROSEMIDE 20 MG TAB PO SCH (09:00)
[2022-02-04] MEDS: METOPROLOL TARTRATE 25 MG TAB PO SCH (09:00)
[2022-02-04] MEDS: PAROXETINE HCL 20 MG TAB PO SCH (09:00)
[2022-02-04] MEDS: FUROSEMIDE 20 MG TAB PO SCH (09:00)
[2022-02-04] MEDS: LOSARTAN POTASSIUM 100 MG TAB PO SCH (09:00)
[2022-02-04 09:26] LABS: INR 0.97; PROTHROMBIN TIME 13.8 seconds (11.9-14.5)
[2022-02-04] MEDS ORDERED: SODIUM CHLORIDE 0.9% 250ML 250 ML ONE (10:39)
[2022-02-04] MEDS ORDERED: IOPAMIDOL 300MG/ML 100 ML INFUS..BTL IV ONE (10:39)
[2022-02-04] MEDS: MONTELUKAST SODIUM 10 MG TAB PO SCH (20:41)
[2022-02-04] MEDS: QUETIAPINE FUMARATE 25 MG TAB PO SCH (20:41)
[2022-02-04] MEDS: ACETAMINOPHEN 325 MG TAB PO PRN (20:41)
[2022-02-04] MEDS: ATORVASTATIN 10 MG TAB PO SCH (20:41)
[2022-02-05] VITALS (7 sets, daily range): BP systolic 124–169; BP diastolic 55–84
[2022-02-05] MEDS: SODIUM CHLORIDE 0.9% 1000ML 1,000 ML IV SCH (03:56)
[2022-02-05 05:48] LABS: BASOPHILS # (AUTO) 0.1 (0.0-0.1); BASOPHILS % 0.8 % (0.0-1.0); EOSINOPHILS # (AUTO) 0.7 (0.0-0.4); EOSINOPHILS % 9.5 % (0.0-6.0); HEMATOCRIT 28.1 % (38.2-49.6); HEMOGLOBIN 8.7 g/dL (14.0-18.0); LYMPHOCYTES % 14.1 % (18.0-39.1); MEAN CORPUSCULAR HEMOGLOBIN 26.4 pg (28-32); MEAN CORPUSCULAR VOLUME 85.4 fL (81-99); MONOCYTES # (AUTO) 0.6 (0.2-0.8); MONOCYTES % 7.6 % (4.4-11.3); NEUTROPHILS # (AUTO) 4.9 (2.1-6.9); NEUTROPHILS % 67.6 % (38.7-80.0); PLATELET COUNT 308 x10e3/uL (140-360); RED BLOOD COUNT 3.29 x10e6/uL (4.3-5.7); RED CELL DISTRIBUTION WIDTH 14.3 % (11.7-14.4)
[2022-02-05 06:10] LABS: CALCIUM 8.5 mg/dL (8.4-10.2); CREATININE, SERUM 1.71 mg/dL (0.72-1.25); MAGNESIUM 1.9 MG/DL (1.3-2.1)
[2022-02-05] MEDS: LEVOTHYROXINE SODIUM 125 MCG TAB PO SCH (06:26)
[2022-02-05] MEDS: ACETAMINOPHEN 325 MG TAB PO PRN (06:26)
[2022-02-05] MEDS ORDERED: CEFTRIAXONE 1 GM VIAL ONE (07:45)
[2022-02-05] MEDS: SENNA-S TABLET PO SCH ×2 (09:50→17:18)
[2022-02-05] MEDS: FUROSEMIDE 20 MG TAB PO SCH (09:50)
[2022-02-05] MEDS: PAROXETINE HCL 20 MG TAB PO SCH (09:50)
[2022-02-05] MEDS: AMLODIPINE BESYLATE 5 MG TAB PO SCH (09:50)
[2022-02-05] MEDS: LACTOBACILLUS ACIDOPHILUS CAPSULE PO SCH (09:50)
[2022-02-05] MEDS: LOSARTAN POTASSIUM 100 MG TAB PO SCH (09:50)
[2022-02-05] MEDS: METOPROLOL TARTRATE 25 MG TAB PO SCH (09:51)
[2022-02-05] MEDS: LEVOFLOXACIN 500 MG TAB PO SCH (14:07)
[2022-02-05] MEDS: MONTELUKAST SODIUM 10 MG TAB PO SCH (21:23)
[2022-02-05] MEDS: ATORVASTATIN 10 MG TAB PO SCH (21:23)
[2022-02-05] MEDS: QUETIAPINE FUMARATE 25 MG TAB PO SCH (21:23)
[2022-02-06 01:01] VITALS: BP 124/83
[2022-02-06 05:00] VITALS: BP 120/65
[2022-02-06 05:29] LABS: BASOPHILS # (AUTO) 0.1 (0.0-0.1); BASOPHILS % 0.9 % (0.0-1.0); EOSINOPHILS # (AUTO) 0.7 (0.0-0.4); EOSINOPHILS % 9.2 % (0.0-6.0); HEMATOCRIT 29.4 % (38.2-49.6); HEMOGLOBIN 9.2 g/dL (14.0-18.0); LYMPHOCYTES # (AUTO) 0.9 (1.0-3.2); LYMPHOCYTES % 11.6 % (18.0-39.1); MEAN CORPUSCULAR HEMOGLOBIN 26.3 pg (28-32); MEAN CORPUSCULAR HGB CONC 31.3 g/dL (31-35); MONOCYTES # (AUTO) 0.5 (0.2-0.8); MONOCYTES % 6.7 % (4.4-11.3); NEUTROPHILS # (AUTO) 5.7 (2.1-6.9); NEUTROPHILS % 71.2 % (38.7-80.0); PLATELET COUNT 357 x10e3/uL (140-360); RED CELL DISTRIBUTION WIDTH 14.2 % (11.7-14.4)
[2022-02-06] MEDS: LEVOTHYROXINE SODIUM 125 MCG TAB PO SCH (05:34)
[2022-02-06 05:53] LABS: ANION GAP 14.3 mmol/L (8-16); CALCIUM 8.9 mg/dL (8.4-10.2); CREATININE, SERUM 1.56 mg/dL (0.72-1.25); POTASSIUM 3.3 mmol/L (3.5-5.1)
[2022-02-06 07:26] VITALS: BP 177/65
[2022-02-06] MEDS: SENNA-S TABLET PO SCH ×2 (08:17→17:17)
[2022-02-06] MEDS: LACTOBACILLUS ACIDOPHILUS CAPSULE PO SCH (08:17)
[2022-02-06] MEDS: AMLODIPINE BESYLATE 5 MG TAB PO SCH (08:17)
[2022-02-06] MEDS: PAROXETINE HCL 20 MG TAB PO SCH (08:17)
[2022-02-06] MEDS: FUROSEMIDE 20 MG TAB PO SCH (08:17)
[2022-02-06] MEDS: LOSARTAN POTASSIUM 100 MG TAB PO SCH (08:18)
[2022-02-06] MEDS: METOPROLOL TARTRATE 25 MG TAB PO SCH (08:18)
[2022-02-06] MEDS ORDERED: ONDANSETRON HCL 4 MG ORAL DISINTEGRATING TAB PO PRN (10:15)
[2022-02-06 12:12] VITALS: BP 162/69
[2022-02-06] MEDS: LEVOFLOXACIN 500 MG TAB PO SCH (13:32)
[2022-02-06 16:24] VITALS: BP 145/72
[2022-02-06] MEDS ORDERED: POTASSIUM CHLORIDE 10MEQ EA PO ONE (17:00)
== END 2022-02-06 19:50 | DRG 699 ==
LOC: ER 19:58 → ERHOLD 19:59 → MED/SURG 22:18 → OBSVTOIN 02-04 07:24 → MED/SURG 02-04 13:14
PROVIDERS: ADMIT Internal Medicine; ATTEND Internal Medicine
PROC: 0T25X0Z Change Drainage Device in Kidney, External Approach (ICD-10-PCS; principal; 2022-02-04)
PROC: 0T25X0Z Change Drainage Device in Kidney, External Approach (ICD-10-PCS; 2022-02-04)
DX: N99.522 Malfunction of incontinent external stoma of urinary tract (principal); I13.0 Hypertensive heart and chronic kidney disease with heart failure and stage 1 through stage 4 chronic kidney disease, or unspecified chronic kidney disease; I50.32 Chronic diastolic (congestive) heart failure; N17.9 Acute kidney failure, unspecified; N39.0 Urinary tract infection, site not specified; R64 Cachexia; B96.5 Pseudomonas (aeruginosa) (mallei) (pseudomallei) as the cause of diseases classified elsewhere; F03.90 Unspecified dementia, unspecified severity, without behavioral disturbance, psychotic disturbance, mood disturbance, and anxiety; Z85.51 Personal history of malignant neoplasm of bladder; E03.9 Hypothyroidism, unspecified; Z91.040 Latex allergy status; N40.0 Benign prostatic hyperplasia without lower urinary tract symptoms; N18.30 Chronic kidney disease, stage 3 unspecified; N39.498 Other specified urinary incontinence; K80.20 Calculus of gallbladder without cholecystitis without obstruction; J44.9 Chronic obstructive pulmonary disease, unspecified
CPT/HCPCS: 36415; 50434; 50435; 71045; 74176; 74230; 74470; 80048; 80053; 81001; 82550; 82553; 83735; 83880; 84484; 85025; 85610; 87086; 87186; 93005; 94799; 96361; 99251; 99284; C1769; C2625; G0378; J0692; J0696; J2270; J2405; J7030; J7050; Q9967

== ENCOUNTER 2022-02-18 13:24 | Emergency (ER) | payer MEDICARE, OTHER ==
[~2022-02-18] VITALS: Ht 182.9 cm; Wt 104.3 kg
[~2022-02-18 13:24] MED LIST changes: +BREZTRI AEROS10.7 GM; +GYNE-LOTRIMIN45 GM TOP; +HYDROXYZIN10 MG/5 ML PO; +LOSARTAN POTASS25 MG PO; +METOPROLOL TART25 MG PO; +NORVASC5 MG PO; +ONDANSETRON ODT8 MG PO; +OYSTER SHELL 51 EACH PO; +PAXIL20 MG PO; +VENLAFAXINE HCL75 MG PO; +VITAMIND3; +ZINC50 M2
[2022-02-18 14:07] LABS: BASOPHILS # (AUTO) 0.1 (0.0-0.1); BASOPHILS % 0.8 % (0.0-1.0); EOSINOPHILS # (AUTO) 0.8 (0.0-0.4); EOSINOPHILS % 9.2 % (0.0-6.0); HEMATOCRIT 27.9 % (38.2-49.6); HEMOGLOBIN 8.2 g/dL (14.0-18.0); LYMPHOCYTES # (AUTO) 0.9 (1.0-3.2); LYMPHOCYTES % 10.1 % (18.0-39.1); MEAN CORPUSCULAR HEMOGLOBIN 26.3 pg (28-32); MEAN CORPUSCULAR HGB CONC 29.4 g/dL (31-35); MEAN CORPUSCULAR VOLUME 89.4 fL (81-99); MONOCYTES # (AUTO) 0.6 (0.2-0.8); MONOCYTES % 6.3 % (4.4-11.3); NEUTROPHILS # (AUTO) 6.5 (2.1-6.9); NEUTROPHILS % 73.3 % (38.7-80.0); PLATELET COUNT 364 x10e3/uL (140-360); RED BLOOD COUNT 3.12 x10e6/uL (4.3-5.7); RED CELL DISTRIBUTION WIDTH 14.6 % (11.7-14.4)
[2022-02-18 14:21] LABS: INR 0.96; PROTHROMBIN TIME 13.7 seconds (11.9-14.5)
[2022-02-18 14:31] LABS: ALBUMIN 2.9 g/dL (3.5-5.0); ALBUMIN/GLOBULIN RATIO 0.8 (0.8-2.0); ALKALINE PHOSPHATASE 62 IU/L (40-150); ANION GAP 18.5 mmol/L (8-16); BLOOD UREA NITROGEN 32 mg/dL (7-26); BUN/CREATININE RATIO 14 (6-25); CALCIUM 9.8 mg/dL (8.4-10.2); CARBON DIOXIDE 24 mmol/L (22-29); CHLORIDE 104 mmol/L (98-107); CREATININE, SERUM 2.31 mg/dL (0.72-1.25); GLUCOSE 153 mg/dL (74-118); POTASSIUM 4.5 mmol/L (3.5-5.1); SODIUM 142 mmol/L (136-145)
[2022-02-18 14:34] LABS: ALANINE AMINOTRANSFERASE < 6 IU/L (0-55)
[2022-02-18] MEDS ORDERED: IOPAMIDOL 300MG/ML 100 ML INFUS..BTL IV ONE (14:44)
[2022-02-18] MEDS ORDERED: SODIUM CHLORIDE 0.9% 250ML 250 ML ONE (14:44)
[2022-02-18] MEDS ORDERED: LIDOCAINE HCL 1% LOCAL INJ 20 ML VIAL ONE (14:44)
[2022-02-19] MEDS ORDERED: SODIUM CHLORIDE 0.9% 1000ML 1,000 ML IV SCH
== END 2022-02-18 16:25 | disposition home or self-care (01) ==
LOC: ER 16:10
DX: Z43.6 Encounter for attention to other artificial openings of urinary tract (principal); L30.9 Dermatitis, unspecified; F03.90 Unspecified dementia, unspecified severity, without behavioral disturbance, psychotic disturbance, mood disturbance, and anxiety; I10 Essential (primary) hypertension; J44.9 Chronic obstructive pulmonary disease, unspecified; Z20.822 Contact with and (suspected) exposure to COVID-19; Z85.51 Personal history of malignant neoplasm of bladder
CPT/HCPCS: 0223U; 36415; 50435; 74470; 80053; 85025; 85610; 99284; C1887; J2001; J7030; J7050; Q9967